=== PATIENT | female | born 1950 | race Asian ===

== ENCOUNTER 2016-11-22 13:16 | Inpatient (IN) | payer BC ==
[~2016-11-22] VITALS: Ht 157.5 cm; Wt 47.2 kg
[2016-11-22] MEDS ORDERED: METFORMIN500 M1 PO (13:46)
[2016-11-22] MEDS ORDERED: OXYCODONE IR PO (13:48)
[2016-11-22] MEDS ORDERED: LOSARTAN POTAS100 M1 PO (13:49)
[2016-11-22] MEDS ORDERED: PRAVACHOL80 MG PO (13:49)
[2016-11-22] MEDS ORDERED: METHADONE HCL5 MG PO (13:50)
[2016-11-22 15:20] LABS: ALKALINE PHOSPHATASE 161 U/L (46-116); ALT/SGPT 13 U/L (14-59); AST/SGOT 14 U/L (15-37); BILIRUBIN TOTAL 0.7 mg/dL (0.20-1.00); CALCIUM 7.4 mg/dL (8.5-10.1); CARBON DIOXIDE 27.6 mmol/L (21-32); CHLORIDE SERUM 83 mmol/L (98-107); CREATININE SERUM 0.7 mg/dL (0.6-1.0); GFR1 > 60 mL/min; GLUCOSE SERUM 182 mg/dL (74-106); SODIUM SERUM 127 mmol/L (136-145)
[2016-11-22 15:23] LABS: RED CELL DISTRIBUTION WIDTH 14.4 % (11.5-14.5)
[2016-11-22 15:27] LABS: POTASSIUM SERUM 1.8 mmol/L (3.5-5.1); TOTAL PROTEIN, SERUM 5.9 g/dL (6.4-8.2)
[2016-11-22 15:29] LABS: PLATELET COUNT 142 x10^3mcL (130-400)
[2016-11-22 16:04] LABS: BAND NEUTROPHIL 8 % (0-10); BASOPHIL 0 % (0-2); MONOCYTE 6 % (0-7); SEGMENTED NEUTROPHILS 48 % (37-75)
[2016-11-22 16:07] LABS: rbc morphology (normal/abnorm) ABNORMAL (NORMAL); schistocyte (helmet cell) 1+
[2016-11-22 16:53] VITALS: BP 146/95
[2016-11-22 18:05] LABS: PHOSPHOROUS 1.3 mg/dL (2.5-4.9)
[2016-11-22 18:08] LABS: CHOLESTEROL/HDL RATIO 4.1
[2016-11-22 18:09] LABS: T3 TOTAL 0.47 ng/mL
[2016-11-22 18:12] LABS: FREE T4 1.35 ng/dL (0.76-1.46); FREE THYROXINE INDEX 1.9 ug/dL (1.4-4.5); T4(THYROXINE) 5.2 ug/dL (4.7-13.3)
[2016-11-22 19:20] LABS: microscopic required? YES; urine erythrocyte 2+ (NEGATIVE)
[2016-11-22 20:02] LABS: AMPHETAMINE QUAL UR NONE DETECTED (NEG <=1000)
[2016-11-22 21:21] VITALS: BP 143/105
[2016-11-22 23:23] VITALS: BP 105/59
[2016-11-23 02:40] LABS: CALCIUM 7.5 mg/dL (8.5-10.1); CARBON DIOXIDE 25.4 mmol/L (21-32); CHLORIDE SERUM 93 mmol/L (98-107); CREATININE SERUM 0.6 mg/dL (0.6-1.0); GFR1 > 60 mL/min; GLUCOSE SERUM 193 mg/dL (74-106); SODIUM SERUM 130 mmol/L (136-145)
[2016-11-23 02:44] LABS: POTASSIUM SERUM 2.3 mmol/L (3.5-5.1)
[2016-11-23 03:21] VITALS: BP 125/85
[2016-11-23 07:16] LABS: RED CELL DISTRIBUTION WIDTH 14.9 % (11.5-14.5)
[2016-11-23 07:17] LABS: PLATELET COUNT 94 x10^3mcL (130-400)
[2016-11-23 07:29] LABS: CARBON DIOXIDE 25.9 mmol/L (21-32); CHLORIDE SERUM 95 mmol/L (98-107); CREATININE SERUM 0.5 mg/dL (0.6-1.0); GFR1 > 60 mL/min; GLUCOSE SERUM 163 mg/dL (74-106); SODIUM SERUM 130 mmol/L (136-145)
[2016-11-23 07:32] LABS: MAGNESIUM 1.7 mg/dL (1.8-2.4)
[2016-11-23 07:55] LABS: PHOSPHOROUS 0.8 mg/dL (2.5-4.9)
[2016-11-23 08:15] VITALS: BP 128/89
[2016-11-23 08:28] VITALS: Ht 157.5 cm; Wt 47.2 kg
[2016-11-23 10:24] LABS: BAND NEUTROPHIL 47 % (0-10); BASOPHIL 0 % (0-2); METAMYELOCTE 5 % (0-2); MONOCYTE 8 % (0-7); SEGMENTED NEUTROPHILS 27 % (37-75)
[2016-11-23 10:25] LABS: rbc morphology (normal/abnorm) ABNORMAL (NORMAL)
[2016-11-23 10:26] LABS: acanthocyte (spur cell) 1+; burr cell (echinocyte) 1+; ovalocyte/elliptocyte 1+; schistocyte (helmet cell) 1+
[2016-11-23 11:45] VITALS: BP 127/84
[2016-11-23 14:00] VITALS: BP 136/80
[2016-11-23 17:32] VITALS: BP 125/87
[2016-11-23 21:26] VITALS: BP 119/68
[2016-11-24 05:58] VITALS: BP 132/88
[2016-11-24 07:04] LABS: PLATELET COUNT 89 x10^3mcL (130-400)
[2016-11-24 07:08] LABS: CALCIUM 6.8 mg/dL (8.5-10.1); CARBON DIOXIDE 24.1 mmol/L (21-32); CHLORIDE SERUM 98 mmol/L (98-107); CREATININE SERUM 0.5 mg/dL (0.6-1.0); GFR1 > 60 mL/min; GLUCOSE SERUM 157 mg/dL (74-106); SODIUM SERUM 137 mmol/L (136-145)
[2016-11-24 07:12] LABS: POTASSIUM SERUM 1.9 mmol/L (3.5-5.1)
[2016-11-24 09:55] VITALS: BP 129/63
[2016-11-24 10:00] LABS: ATYPICAL LYMPH 3 %; BAND NEUTROPHIL 33 % (0-10); BASOPHIL 0 % (0-2); MONOCYTE 14 % (0-7); SEGMENTED NEUTROPHILS 44 % (37-75)
[2016-11-24 10:01] LABS: PLATELET MORPHOLOGY PLATELETS DECREASED; rbc morphology (normal/abnorm) ABNORMAL (NORMAL)
[2016-11-24 10:02] LABS: acanthocyte (spur cell) 3+
[2016-11-24 12:57] LABS: MAGNESIUM 1.7 mg/dL (1.8-2.4); PHOSPHOROUS 1.6 mg/dL (2.5-4.9)
[2016-11-24 14:09] VITALS: BP 136/84
[2016-11-24 17:03] VITALS: BP 145/96
[2016-11-24 22:07] VITALS: BP 149/98
[2016-11-25 01:40] VITALS: BP 114/73
[2016-11-25 05:53] VITALS: BP 97/67
[2016-11-25 12:13] VITALS: BP 134/87
[2016-11-25 14:30] VITALS: BP 0/0
== END 2016-11-25 18:40 | disposition expired | DRG 180 ==
LOC: ED 13:16 → DU 16:09 → IC 16:09 → ED 16:09 → IC 20:12 → DU 11-23 14:00
PROVIDERS: Emergency Medicine; Family Medicine; ADMIT Family Medicine
PROC: 0W9900Z Drainage of Right Pleural Cavity with Drainage Device, Open Approach (ICD-10-PCS; principal; 2016-11-22)
DX: C34.90 Malignant neoplasm of unspecified part of unspecified bronchus or lung (principal); E43 Unspecified severe protein-calorie malnutrition; N17.0 Acute kidney failure with tubular necrosis; J96.21 Acute and chronic respiratory failure with hypoxia; J93.83 Other pneumothorax; C79.51 Secondary malignant neoplasm of bone; E22.2 Syndrome of inappropriate secretion of antidiuretic hormone; E87.1 Hypo-osmolality and hyponatremia; D61.818 Other pancytopenia; E83.39 Other disorders of phosphorus metabolism; E83.42 Hypomagnesemia; E87.6 Hypokalemia; I10 Essential (primary) hypertension; I46.9 Cardiac arrest, cause unspecified; Z91.010 Allergy to peanuts; Z91.018 Allergy to other foods
CPT/HCPCS: 32551; 36600; 80307; 82962; 84439; 92610-GN; A7042; C1729; J0690; J1170; J2001; J2250; J2270; J2405; J3010; J3475; J3480; J3490; J7030; J7620; J7626; Q0092